=== PATIENT | female | born 1965 | race Caucasian/White ===

== ENCOUNTER → 2016-12-13 | Outpatient (CLI) | payer BC ==
--- NOTE | 2016-12-13 08:26 | MA ---
Screening Digital Mammogram Clinical Indications: Routine screening. Technique: Standard cephalocaudal and mediolateral oblique projections are obtained. This examinati on is processed by the [employer] computer aided detection system. Comparison: October 2015, August 2014, August 2013 and July 2012 Breast density: B; There are scattered fibroglandular densities. Findings: CAD was reviewed. There is a new prominent convex soft tissue density high in the left axil la. The breasts are stable and negative. Impression: Possible left axillary adenopathy. BI-RADS 0. Additional imaging left axilla. Recommendation: Ultrasound of the left axilla to evaluate for any abnormal lymph nodes. [facility] will send a result letter to the patient. Negative mammography should not preclude additional workup of a clinically suspicious finding. The patient's information is entered into a reminder system with a target due date for her next mammo gram.
== END ==
LOC: BRMIMAGING 07:38
DX: Z12.31 Encounter for screening mammogram for malignant neoplasm of breast (principal); R92.8 Other abnormal and inconclusive findings on diagnostic imaging of breast
CPT/HCPCS: G0202

== ENCOUNTER → 2016-12-19 | Outpatient (CLI) | payer BC | LOC: BRMIMAGING 09:55 | PROVIDERS: ATTEND Family Medicine | DX: Z03.89 Encounter for observation for other suspected diseases and conditions ruled out (principal) | CPT/HCPCS: 76641-PO ==